=== PATIENT | female | born 1995 | race Hispanic/Latino ===

== ENCOUNTER 2023-03-11 13:58 | Emergency (ER) | payer SELFPAY ==
[2023-03-11 14:01] VITALS: BP 114/72
[2023-03-11 14:23] LABS: % Basophils 0.1 % (0-2); % Eosinophils 1.2 % (0-6); % Immature Granulocytes 0.2 % (0-0.5); % Lymphocytes 33.8 % (20.5-51.1); % Monocytes 5.7 % (1.7-9.3); Absolute Eosinophils 0.1 10^3/uL (0-0.7); Absolute Lymphocytes 2.8 10^3/uL (1.2-3.4); Absolute Monocytes 0.5 10^3/uL (0.1-0.6); Hematocrit 42.3 % (37.0-47.0); Mean Corp Hgb Conc. 35.5 g/dL (33.0-37.0); Mean Corpuscular Hgb 29.2 pg (27.0-31.0); Mean Corpuscular Volume 82.3 fL (81.0-99.0); Mean Platelet Volume 9.6 fL (7.4-10.4); Nucleated Red Blood Cells % 0 %; Platelet Count 258 10^3/uL (130-400); Red Blood Cell Count 5.14 10^6/uL (4.20-5.40); Red Cell Dist. Width 12.8 % (11.5-14.5); White Blood Cell Count 8.4 10^3/uL (4.8-10.8)
[2023-03-11 14:29] LABS: COVID-19 Antigen Negative (Negative)
[2023-03-11 14:44] LABS: ALT (SGPT) 35 U/L (0-35); AST (SGOT) 36 U/L (14-36); Albumin 4.7 g/dl (3.5-5.0); Alkaline Phosphatase 73 U/L (38-126); Blood Urea Nitrogen 10 mg/dl (7-17); Calcium 8.9 mg/dl (8.4-10.2); Carbon Dioxide 24 mmol/L (22-30); Chloride 105 mmol/L (98-107); Glucose 93 mg/dl (70-99); Potassium 3.7 mmol/L (3.5-5.1); Sodium 137 mmol/L (135-145); Total Bilirubin 0.8 mg/dl (0.2-1.3); Total Protein 7.7 g/dl (6.3-8.2); eGFR > 60.00
--- NOTE | 2023-03-11 15:50 | ED.GENMED ---
History of Present Illness
General
Chief Complaint: Abdominal Symptoms
Source: patient
Exam Limitations: none
Time Seen by Provider: 03/11/23 15:37
Nursing documentation reviewed up to this point in time: agreed with
Travel History
Have you had any contact with someone who has COVID-19?: No
Do you have any symptoms of coronavirus? Fever > 100 degrees, chills, cough, shortness of breath, sore throat, loss of taste or smell, muscle aches, or headache?: No
History of Present Illness
History of Present Illness:
27-year-old female states she has had nausea vomiting and nonbloody diarrhea with intermittent fever for the past 3 days. She also has cramping across her lower abdomen waxing and waning sometimes /10 now 6/10.
No known sick contacts.
Past History
Past History
ED Past Medical History: None
ED Past Surgical History: Appendectomy and Cholecystectomy
Social History
Tobacco: Non-smoker
Alcohol: None
Personal:
Living: with family
Employment: Employed
Review of Systems
Review of Systems
Allergies reviewed?: Yes
All Other Systems: ROS reviewed and negative except as documented in HPI and ROS
Constitutional: Denies fever
Respiratory: Denies trouble breathing
Cardiac: Denies chest pain
ABD/GI: Reports abdominal pain, nausea, vomiting and diarrhea; Denies constipated, bloody stools or black stools
: Reports dysuria; Denies frequency, flank pain, difficulty voiding, urgency, bleeding or discharge
Musculoskeletal: Reports no symptoms
Skin: Reports no symptoms
Neurological: Reports no symptoms
Phy Exam
Physical Exam
Physical Exam:
GENERAL: No acute distress. A&Ox3.
CONSTITUTIONAL: Afebrile.
EYES: clear, conjunctivae normal
ENMT: moist mucus membranes, Pharynx nl
RESPIRATORY: Regular respirations, nonlabored, lungs clear.
CARDIOVASCULAR: Regular rate and rhythm, no murmurs, no rubs.
GI: Soft, mild tenderness across lower abdomen, normal BS
MUSCULOSKELETAL: Moves with ease. Well perfused.
SKIN: Warm, dry, normal
PSYCH: Normal mood and affect. Well kept, interactive and appropriate
NEUROLOGIC: Awake, alert and oriented. No focal neurological deficits
Course
Orders/Labs/Results
Orders:
Orders
03/11/23 14:09
C-Reactive Protein Urgent
Comment: ADD ON
COVID-19 Antigen Urgent
Source: Nasal Swab
Complete Blood Count/With Diff Urgent
Comprehensive Metabolic Panel Urgent
Erythrocyte Sed Rate Urgent
Comment: ADD ON
HCG, Serum Qualitative Screen Urgent
Comment: ADD ON
Lipase Urgent
Comment: ADD ON
Influenza A+B Rapid Molecular Urgent
NANCY Source: Nasal Swab
Specimen Description:
03/11/23 15:47
Add On- LAB Urgent
Tests Added?: Hcg qualitative
03/11/23 15:48
Add On- LAB Urgent
Tests Added?: Lipase
03/11/23 15:49
CT Abd/Pel (IV only)-DH only Urgent
Comment:
Reason For Exam: lower abd pain, diarrhea
Urinalysis Reflex To Culture Urgent
Date Specimen was Collected: 03/11/23
Time Specimen was Collected: 15:48
Urine Microscopic Reflex Cult Urgent
Urine Culture Urgent
NANCY Source: U
Specimen Description:
Date Specimen was Collected: 03/11/23
Time Specimen was Collected: 15:48
03/11/23 18:18
Add On- LAB Urgent
Tests Added?: ESR, CRP
03/11/23 18:44
STOOL [C difficile Antigen & Toxins] Urgent
NANCY Source: Feces/Stool
Specimen Description:
Date Specimen was Collected: 03/11/23
Time Specimen was Collected: 18:43
03/11/23 18:45
Stool Culture Urgent
NANCY Source: Feces/Stool
Specimen Description:
Date Specimen was Collected: 03/11/23
Time Specimen was Collected: 18:43
Abnormal Lab Results
03/11/23 03/11/23
14:09 15:49
C-Reactive Protein 14.60 H mg/L
(0.0-10.00)
Ur Occult Blood Reflex 1+ A
(Negative)
Urine Bilirubin 1+ A
(Negative)
Leukocyte Esterase Rfl 2+ A
(Negative)
Urine RBC 7-10 A /HPF
(0-2)
Urine WBC (Reflex) >100 A /HPF
(0-5)
Urine Bacteria (Reflex) Moderate A
(Negative)
03/11/23 14:09
03/11/23 14:09
Vital Signs
Initial and Last Documented VS:
Initial Vital Signs
Temp Pulse Resp BP Pulse Ox
98.1 F 94 18 114/72 99
03/11/23 14:01 03/11/23 14:01 03/11/23 14:01 03/11/23 14:01 03/11/23 14:01
Last Documented Vital Signs
Temp Pulse Resp BP Pulse Ox
98.1 F 94 18 114/72 99
03/11/23 14:01 03/11/23 14:01 03/11/23 14:01 03/11/23 14:01 03/11/23 14:01
MDM/Problems Addressed
Differential Diagnosis Includes:
Viral gastroenteritis, colitis, diverticulitis, UTI
MDM/Problems Addressed:
27-year-old female states she has had nausea vomiting and nonbloody diarrhea with intermittent fever for the past 3 days. She also has cramping across her lower abdomen waxing and waning sometimes /10 now 07/26.
No known sick contacts.
Afebrile, NAD
03/11/2023 1734 PM
CBC normal
CMP normal
hCG negative
UA positive for infection
03/11/[address] abdomen pelvis with IV only contrast: Radiology report read: IMPRESSION:
1. � Mild wall thickening and mucosal hyperenhancement throughout the colon suggesting a mild acute infectious colitis.
2. � Minimal peritoneal fluid in the pelvic cul-de-sac.
3. � 1.6 cm corpus luteal cyst in the right ovary.
4. � Mild splenomegaly.
5. � Previous cholecystectomy.
6. � Mild intrahepatic biliary dilatation.
Rx for Cipro and Flagyl sent to her pharmacy, should cover both colitis and UTI
Pt ambulated out with normal gait at discharge
*Critical Care Note
Total Time (30-74mins, 75-104mins- exclusive of procedures): Not Applicable
ED Attending Note
-
Portions of this chart may have been created with voice recognition software.� Occasional wrong word or��sound alike� substitutions may have occurred due to the inherent limitations of voice recognition software.
Discharge Plan
Departure
Patient Disposition: Home (Routine Discharge)
Date of Disposition: 03/11/23
Time of Disposition: 18:26
Patient with high blood pressure during this ER visit?: No
Condition: Good
Discharge Problem:
Colitis, UTI (urinary tract infection)
Instructions: Colitis, Clear Liquid Diet, Urinary Tract Infection, Adult ED
Prescriptions:
New
ciprofloxacin HCl [Cipro] 500 mg tablet
500 mg PO BID Qty: 14 0RF
metronidazole 500 mg tablet
500 mg PO TID Qty: 21 0RF
Referrals:
Mona Miramontes MD [Active] - Next open appointment
NONE,* [Family Provider] -
Activity Restrictions/Additional Instructions:
As we discussed, you have a urine infection as well as colitis (infection in your bowel).
I sent a prescription to your pharmacy for 2 antibiotics, pick them up and start them today.
Call the GI doctors office tomorrow and asked them when you should be seen for a follow-up appointment for colitis
Clear liquid diet for 2 days.
Return here immediately for fever above 100.5, worsening abdominal pain, bloody stools or feeling sicker in any way
Interventions
Interventions:
*Risk Screen - Suicide Last Done: 03/11/23 15:57
*General Assessment Last Done: 03/11/23 15:57
*Neglect/Abuse Screening Last Done: 03/11/23 15:57
ED- Fall Risk Assessment Last Done: 03/11/23 15:57
*ED COVID-19 Vaccine History Last Done: 03/11/23 14:01
*Nursing Disposition Last Done: 03/11/23 18:36
ZO-Cvzenz-Rcratvaqvw Assessment Last Done: 03/11/23 15:57
[2023-03-11 15:59] LABS: Urine Albumin Trace (Neg - Trace); Urine Bilirubin 1+ (Negative); Urine Character Clear (Clear); Urine Color Yellow; Urine Glucose Negative (Negative); Urine Ketone Negative (Negative); Urine Leukocyte 2+ (Negative); Urine Nitrite Negative (Negative); Urine Occult Blood 1+ (Negative); Urine Specific Gravity 1.025 (<1.030); Urine Urobilinogen Negative (Neg - 1+)
[2023-03-11 16:06] LABS: Urine Squamous Cell >30 /LPF (Few)
[2023-03-11 16:07] LABS: Urine Bacteria Moderate (Negative); Urine White Cell >100 /HPF (0-5)
[2023-03-11 16:24] LABS: HCG, Serum Qualitative Screen Negative
[2023-03-11 16:34] LABS: Lipase 68 U/L (23-300)
[2023-03-11 18:34] LABS: Erythrocyte Sed Rate 5 mm/hour (0-20)
== END 2023-03-11 18:36 | disposition home or self-care (01) ==
LOC: EMR 13:58
PROVIDERS: Emergency Medicine; Registered Nurse; EMERGENCY PHYSICIAN Emergency Medicine
DX: K52.9 Noninfective gastroenteritis and colitis, unspecified (principal); N39.0 Urinary tract infection, site not specified
CPT/HCPCS: 99284; 74177; 80053; 81003; 81015; 83690; 84703; 85025; 85652; 86140; 87045; 87046; 87077; 87086; 87324; 87427; 87449; 87502; 87811; Q9967

== ENCOUNTER 2024-04-16 18:02 | Emergency (ER) | payer OTHER, SELFPAY ==
[2024-04-16 18:19] VITALS: BP 118/70
[2024-04-16 21:08] LABS: Urine Albumin 1+ (Neg - Trace); Urine Bilirubin Negative (Negative); Urine Character Cloudy (Clear); Urine Color Yellow; Urine Glucose Negative (Negative); Urine Ketone Negative (Negative); Urine Leukocyte 1+ (Negative); Urine Nitrite Negative (Negative); Urine Occult Blood Negative (Negative); Urine Specific Gravity 1.015 (<1.030); Urine Urobilinogen 2+ (Neg - 1+)
[2024-04-16 21:18] LABS: Urine Amorphous Seen; Urine Red Blood Cell 0-2 /HPF (0-2)
[2024-04-16] MEDS: FLEXERIL 10 MG PO (22:05)
[2024-04-16] MEDS: TORADOL 15 MG IM (22:05)
[2024-04-16 22:14] LABS: HCG, Urine Qualitative Screen Negative
--- NOTE | 2024-04-16 23:06 | ED.GENMED ---
History of Present Illness
General
Chief Complaint: Back Pain
Source: patient
Exam Limitations: none
Time Seen by Provider: 04/16/24 21:33
Nursing documentation reviewed up to this point in time: agreed with
History of Present Illness
History of Present Illness:
28-year-old female presenting to the emergency department today with burning low back discomfort of the past 2 months made worse with movement and certain positioning. Denies any significant urinary symptoms chest pain shortness of breath nausea
vomiting or fevers
Past History
Past History
ED Past Medical History: None
ED Past Surgical History: Appendectomy and Cholecystectomy
Social History
Tobacco: Non-smoker
Alcohol: None
Personal:
Living: with family
Employment: Employed
Review of Systems
Review of Systems
Allergies reviewed?: Yes
All Other Systems: ROS reviewed and negative except as documented in HPI and ROS
Phy Exam
Physical Exam
Physical Exam:
GENERAL: Alert , in no apparent distress
EYE: pupils equal and reactive
NECK: Supple, no significant adenopathy.
ENT: o/p clr, mmm.
CARDIAC: Regular rate and rhythm .
LUNGS: Clear breath sounds bilaterally, no acute respiratory distress, no wheezes/rales/rhonchi
ABDOMEN: Soft, without focal tenderness, no r/g, no cvat
NEUROLOGICAL: Alert and oriented, no focal neuro deficits
SKIN: Warm and dry, skin intact.
MUSCULOSKELETAL: No edema, well perfused.
PSYCH: Normal and appropriate interaction.
Course
Orders/Labs/Results
Orders:
Orders
04/16/24 21:00
HCG, Urine Qualitative Screen Urgent
Date Specimen was Collected: 04/16/24
Time Specimen was Collected: 20:59
Comment: ADDON
Urinalysis Reflex To Culture Urgent
Date Specimen was Collected: 04/16/24
Time Specimen was Collected: 20:59
Comment: Clean Catch
Urine Microscopic Reflex Cult Urgent
Urine Culture Urgent
NANCY Source: U
Specimen Description:
Date Specimen was Collected: 04/16/24
Time Specimen was Collected: 20:59
04/16/24 21:59
Add On- LAB Urgent
Tests Added?: urine hcg qual
Cyclobenzaprine HCl [Flexeril] 10 mg PO NOW STA
Ketorolac [Toradol] 15 mg IM NOW STA
Lumbar Spine, 2 or 3 View [CR Lumbar Spine 2 Or 3 Views] Urgent
Comment:
Reason For Exam: low back pain
Abnormal Lab Results
04/16/24
21:00
Urine Urobilinogen 2+ A
(Neg - 1+)
Leukocyte Esterase Rfl 1+ A
(Negative)
Urine Albumin (Reflex) 1+ A
(Neg - Trace)
Vital Signs
Initial and Last Documented VS:
Initial Vital Signs
Temp Pulse Resp BP Pulse Ox
98 F 68 16 118/70 100
04/16/24 18:19 04/16/24 18:19 04/16/24 18:19 04/16/24 18:19 04/16/24 18:19
Last Documented Vital Signs
Temp Pulse Resp BP Pulse Ox
98 F 68 16 118/70 100
04/16/24 18:19 04/16/24 18:19 04/16/24 18:19 04/16/24 18:19 04/16/24 18:19
MDM/Problems Addressed
MDM/Problems Addressed:
28-year-old female presenting to the emergency department today with concerns of low back discomfort over the past 2 months. Seems to be worse specifically with movement and positioning. No neurologic deficits lower extremities normal bowel and
bladder function. No infectious symptoms. Urinalysis showing amorphous crystals but otherwise no evidence of infection. X-ray performed which was normal. Patient with likely mechanical back pain plan for symptomatic treatment otherwise advised
for close outpatient follow-up. Return precautions given.
*Critical Care Note
Total Time (30-74mins, 75-104mins- exclusive of procedures): Not Applicable
ED Attending Note
-
Portions of this chart may have been created with voice recognition software.� Occasional wrong word or��sound alike� substitutions may have occurred due to the inherent limitations of voice recognition software.
Discharge Plan
Departure
Patient Disposition: Home (Routine Discharge)
Date of Disposition: 04/16/24
Time of Disposition: 23:21
Patient with high blood pressure during this ER visit?: No
Condition: Good
Covid-19: Not Applicable
Discharge Problem:
Back pain
Instructions: Low Back Pain (DC)
Prescriptions:
New
prednisone 20 mg tablet
40 mg PO DAILY 3 Days Qty: 6 0RF
cyclobenzaprine 10 mg tablet
10 mg PO HS PRN (Reason: muscle spasm) Qty: 7 0RF
No Action
ciprofloxacin HCl [Cipro] 500 mg tablet
500 mg PO BID Qty: 14 0RF
metronidazole 500 mg tablet
500 mg PO TID Qty: 21 0RF
Referrals:
Rosalina Reed, DO [Family Provider] -
Activity Restrictions/Additional Instructions:
You came to the emergency department today with concerns of back discomfort. Here you had a normal x-ray. This seems to be consistent with mechanical back pain. Please take the prescribed medication and follow-up closely with your primary care
doctor within 1 to 2 weeks for reassessment. Return for any worsening or progressive symptoms.
Interventions
Interventions:
*Risk Screen - Suicide Last Done: 04/16/24 18:21
*General Assessment Last Done: 04/16/24 21:01
*Neglect/Abuse Screening Last Done: 04/16/24 18:21
ED- Fall Risk Assessment Last Done: 04/16/24 20:58
*ED COVID-19 Vaccine History Last Done: 04/16/24 21:01
ED-Musculoskeletal Assessment Last Done: 04/16/24 20:58
Discharge Date and Time
Print Language: KENYAN
[2024-04-16] MEDS: DECADRON 10 MG PO (23:44)
[2024-04-16 23:50] VITALS: BP 107/79
[2024-04-16 23:51] VITALS: BP 107/79
== END 2024-04-16 23:52 | disposition home or self-care (01) ==
LOC: EMR 18:02
PROVIDERS: EMERGENCY PHYSICIAN Student in an Organized Health Care Education/Training Program; FAMILY PHYSICIAN Internal Medicine
DX: M54.50 Low back pain, unspecified (principal); Z90.49 Acquired absence of other specified parts of digestive tract
CPT/HCPCS: 99283; 96372; 72100; 81003; 81015; 81025; 87086